=== PATIENT | female | born 1990 | race Caucasian/White ===

== ENCOUNTER → 2017-11-18 | Outpatient (CLI) | payer OTHER ==
[~2017-11-18] MED LIST: ABAC300; ALBIPROI INH; ALBU90I INH; ALBU90OI; ALBU90OI INH; ALBU90OI6 INH; AMOCLA875 PO; AMOX500; AMOX500 PO; AZIT250 PO; AZIT500 PO; Amoxicillin500 MG PO; BUPR150T2; CEPH500 PO; CIME300 PO; CLAR250 PO; CODGUAEL; CYCL10 PO; DIAZ5 PO; DIVA125EC PO; DOXY100 PO; ESCI10 PO; HYDACE5 PO; HYDACE7.5 PO; HYDGUAL120 PO; HYDPAM50 PO; IBUP600 PO; IBUP800 PO; IUD; METR500 PO; NAPR500 PO; NAPR500ERA PO; NAPR550 PO; OXYACE5T PO; PENVK500 PO; PERM5TC TOP; PRED20 PO; PRENATAL 19 TA1 EACH PO; PROACE50 PO; PROC10 PO; PROM25 PO; Peridex480 ML SS; RANI150 PO; RXCLIN PO; RXHYDACE PO; RXONDA4ODT MM; SULTRIDS PO; TRAM50 PO; Verotin-Gr Cap1 EACH PO; Zofran Odt4 MG SL; Zofran Odt8 MG SL
[2017-11-18 17:21] LABS: U Amphetamine Screen Not Detected; U Barbituate Screen Not Detected; U Benzodiazapine Screen Not Detected; U Buprenorphine Screen Not Detected; U Cannabinoids Screen DETECTED; U Cocaine Screen Not Detected; U Methadone Screen Not Detected; U Methamphetamine Screen Not Detected; U Opiates Screen Not Detected; U Oxycodone Screen Not Detected; U Phencyclidine Screen Not Detected; U Propoxyphene Screen Not Detected
== END ==
LOC: LAB SHORT 16:19
PROVIDERS: Obstetrics & Gynecology
DX: Z34.81 Encounter for supervision of other normal pregnancy, first trimester (principal); R30.0 Dysuria

== ENCOUNTER → 2018-01-30 | Outpatient (CLI) | payer OTHER ==
[2018-01-30 18:47] LABS: U Amphetamine Screen Not Detected; U Barbituate Screen Not Detected; U Benzodiazapine Screen Not Detected; U Buprenorphine Screen Not Detected; U Cannabinoids Screen DETECTED; U Cocaine Screen Not Detected; U Methadone Screen Not Detected; U Methamphetamine Screen Not Detected; U Opiates Screen Not Detected; U Oxycodone Screen Not Detected; U Phencyclidine Screen Not Detected; U Propoxyphene Screen Not Detected
== END | disposition home or self-care (01) ==
LOC: LAB 16:23 → LAB SHORT 16:23
PROVIDERS: Obstetrics & Gynecology
DX: O99.89 Other specified diseases and conditions complicating pregnancy, childbirth and the puerperium (principal); R30.0 Dysuria; Z3A.25 25 weeks gestation of pregnancy
CPT/HCPCS: 87086; G0480

== ENCOUNTER → 2018-04-03 | Outpatient (CLI) | payer OTHER ==
[2018-04-03 17:51] LABS: U Amphetamine Screen Not Detected; U Barbituate Screen Not Detected; U Benzodiazapine Screen Not Detected; U Buprenorphine Screen Not Detected; U Cannabinoids Screen Not Detected; U Cocaine Screen Not Detected; U Methadone Screen Not Detected; U Methamphetamine Screen DETECTED; U Opiates Screen Not Detected; U Oxycodone Screen Not Detected; U Phencyclidine Screen Not Detected; U Propoxyphene Screen Not Detected
== END | disposition home or self-care (01) ==
LOC: LAB SHORT 16:55
PROVIDERS: Obstetrics & Gynecology
DX: Z34.83 Encounter for supervision of other normal pregnancy, third trimester (principal); R30.0 Dysuria; Z3A.34 34 weeks gestation of pregnancy

== ENCOUNTER → 2018-04-22 | Outpatient (CLI) | payer OTHER ==
[~2018-04-22] MED LIST changes: +Percocet 5-3251 EACH PO
[2018-04-22 17:44] LABS: U Amphetamine Screen Not Detected; U Barbituate Screen Not Detected; U Benzodiazapine Screen Not Detected; U Buprenorphine Screen Not Detected; U Cannabinoids Screen Not Detected; U Cocaine Screen Not Detected; U Methadone Screen Not Detected; U Methamphetamine Screen Not Detected; U Opiates Screen Not Detected; U Oxycodone Screen Not Detected; U Phencyclidine Screen Not Detected; U Propoxyphene Screen Not Detected
== END | disposition home or self-care (01) ==
LOC: LAB SHORT 15:54 → LAB 15:54
PROVIDERS: Obstetrics & Gynecology
DX: Z34.83 Encounter for supervision of other normal pregnancy, third trimester (principal); Z3A.36 36 weeks gestation of pregnancy
CPT/HCPCS: 87086

== ENCOUNTER 2018-08-24 16:06 | Emergency (ER) | payer OTHER ==
[~2018-08-24] VITALS: Ht 160 cm; Wt 112.9 kg
[2018-08-24 16:59] LABS: BASOPHILS ABSOLUTE AUTO 0.05 K/mm3 (0.00-0.23); BASOPHILS PERCENT AUTO 0 % (0-2); EOSINOPHILS ABSOLUTE AUTO 0.04 K/mm3 (0.00-0.68); EOSINOPHILS PERCENT AUTO 0 % (0-6); Hematocrit 40.9 % (33.0-51.0); Hemoglobin 12.9 g/dL (11.5-16.0); IMMATURE GRAN ABSOLUTE AUTO 0.08 K/mm3 (0.00-0.10); IMMATURE GRAN PERCENT AUTO 1 % (0-1); LYMPHOCYTES ABSOLUTE AUTO 0.52 K/mm3 (0.84-5.20); LYMPHOCYTES PERCENT AUTO 3 % (21-46); MONOCYTES ABSOLUTE AUTO 0.49 K/mm3 (0.16-1.47); MONOCYTES PERCENT AUTO 3 % (4-13); Mean Corpuscular HGB 26.2 pg (26.0-34.0); Mean Corpuscular HGB Conc 31.5 g/dL (31.5-36.5); Mean Corpuscular Volume 83 fL (80-100); Mean Platelet Volume 11.3 fL (9.1-12.4); NEUTROPHILS ABSOLUTE AUTO 16.44 K/mm3 (1.96-9.15); NEUTROPHILS PERCENT AUTO 93 % (41-73); Platelet Count 298 K/mm3 (150-400); RDW Coefficient Variation 14.1 % (11.7-14.2); RDW Standard Deviation 42.9 fL (35.1-46.3); Red Blood Cell Count 4.92 M/mm3 (3.80-5.20); White Blood Cell Count 17.62 K/mm3 (4.00-11.30)
[2018-08-24 17:07] LABS: Alanine Aminotransfer (ALT/SGP 37 U/L (12-78); Albumin, Blood 3.2 g/dL (3.4-5.0); Albumin/Globulin Ratio 0.8 (0.8-1.8); Alk Phos 144 U/L (50-136); Anion Gap 10 mmol/L (6-16); Aspartate Aminotrans (AST/SGOT 72 U/L (12-37); Bilirubin, Total 0.9 mg/dL (0.1-1.0); Blood Urea Nitrogen 12 mg/dL (8-24); Bun/Creatinine Ratio 13.3 (12.0-20.0); CO2, Blood 21 mmol/L (21-32); Calcium, Blood 8.5 mg/dL (8.5-10.1); Chloride, Blood 105 mmol/L (98-108); Globulin, Blood 4.2 g/dL (2.2-4.0); Glomerular Filtration Rate >60 (60-); Glucose, Blood 97 mg/dL (70-99); Potassium, Blood 3.1 mmol/L (3.5-5.5); Sodium, Blood 136 mmol/L (136-145); Total Protein, Blood 7.4 g/dL (6.4-8.2)
[2018-08-24 17:34] LABS: Source, Urine Clean Catch
[2018-08-24 17:40] LABS: Appearance, Urine Clear (Clear); Bilirubin, Urine Neg (Neg); Blood, Urine 3+ (Neg); Color, Urine Yellow (P-Yellow); Glucose Qualitative, Urine Neg (Neg); Ketones, Urine Neg (Neg); Leukocyte Esterase, Urine 3+ (Neg); Nitrite, Urine Neg (Neg); Protein, Urine 1+ (Neg); Specific Gravity, Urine 1.015 (1.003-1.022); Urobilinogen, Urine NORM (Normal)
[2018-08-24 17:58] LABS: Bacteria Rare /hpf; Red Blood Cells, Urine 0-2 /hpf (0-2); Squamous Epithelial Cells Rare /hpf (Few)
== END 2018-08-24 17:57 | disposition left against medical advice (07) ==
LOC: ER 16:06
PROVIDERS: Physician Assistant
DX: R42 Dizziness and giddiness (principal); R11.0 Nausea; M54.5 Low back pain; Z53.20 Procedure and treatment not carried out because of patient's decision for unspecified reasons
CPT/HCPCS: 36415; 80053; 81001; 81025; 85025; 87077; 87086; 87186; 93005; 93010; 99283-25

== ENCOUNTER 2018-08-25 20:21 | Inpatient (IN) | payer OTHER ==
[~2018-08-25] VITALS: Ht 160 cm; Wt 118.7 kg
[2018-08-25 21:12] LABS: Hematocrit 39.9 % (33.0-51.0); Mean Corpuscular HGB 26.5 pg (26.0-34.0); Mean Corpuscular HGB Conc 32.6 g/dL (31.5-36.5); Mean Corpuscular Volume 81 fL (80-100); Mean Platelet Volume 11.4 fL (9.1-12.4); Platelet Count 249 K/mm3 (150-400); RDW Standard Deviation 41.5 fL (35.1-46.3); White Blood Cell Count 24.71 K/mm3 (4.00-11.30)
[2018-08-25 21:30] LABS: Albumin, Blood 2.8 g/dL (3.4-5.0); Albumin/Globulin Ratio 0.6 (0.8-1.8); Bun/Creatinine Ratio 13.6 (12.0-20.0); Calcium, Blood 8.5 mg/dL (8.5-10.1); Creatinine, Blood 1.32 mg/dL (0.40-1.00); Globulin, Blood 4.5 g/dL (2.2-4.0); Potassium, Blood 3.2 mmol/L (3.5-5.5); Total Protein, Blood 7.3 g/dL (6.4-8.2)
[2018-08-25 21:37] LABS: BAND PERCENT MAN 5 % (0-8); BASOPHILS PERCENT MAN 0 % (0-2); EOSINOPHILS ABSOLUTE MAN 0.24 K/mm3 (0.00-0.68); EOSINOPHILS PERCENT MAN 1 % (0-6); LYMPHOCYTES ABSOLUTE MAN 2.22 K/mm3 (0.84-5.20); LYMPHOCYTES PERCENT MAN 9 % (21-46); METAMYELOCYTE ABSOLUTE MAN 0.49 K/mm3 (0.00-0.00); METAMYELOCYTE PERCENT MAN 2 % (0-0); MONOCYTES ABSOLUTE MAN 1.97 K/mm3 (0.16-1.47); MONOCYTES PERCENT MAN 8 % (4-13); NEUTROPHILS ABSOLUTE MAN 19.76 K/mm3 (1.96-9.15); SEG NEUTROPHILS PERCENT MAN 75 % (41-73); TOTAL CELLS COUNTED 100
[2018-08-26 00:05] LABS: Source, Urine Clean Catch
[2018-08-26 00:09] LABS: Appearance, Urine Cloudy (Clear); Blood, Urine 4+ (Neg); Color, Urine Amber (P-Yellow); Glucose Qualitative, Urine Neg (Neg); Ketones, Urine 1+ (Neg); Leukocyte Esterase, Urine 3+ (Neg); Nitrite, Urine Pos (Neg); Protein, Urine 3+ (Neg); Specific Gravity, Urine 1.015 (1.003-1.022); Urobilinogen, Urine 4+ (Normal)
[2018-08-26 00:10] LABS: Bilirubin, Urine 1+ (Neg)
[2018-08-26 00:18] LABS: Bacteria Many /hpf; Squamous Epithelial Cells Many /hpf (Few); White Blood Cells, Urine TNTC /hpf (0-5)
[2018-08-26 00:19] LABS: Hyaline Casts 0-2 /lpf (0-2)
[2018-08-26 05:11] LABS: Hematocrit 36.8 % (33.0-51.0); Hemoglobin 11.7 g/dL (11.5-16.0); Mean Corpuscular HGB 26.1 pg (26.0-34.0); Mean Corpuscular HGB Conc 31.8 g/dL (31.5-36.5); Mean Corpuscular Volume 82 fL (80-100); Platelet Count 195 K/mm3 (150-400); RDW Coefficient Variation 14.3 % (11.7-14.2); RDW Standard Deviation 42.3 fL (35.1-46.3); Red Blood Cell Count 4.48 M/mm3 (3.80-5.20); White Blood Cell Count 21.94 K/mm3 (4.00-11.30)
[2018-08-26 05:44] LABS: Albumin, Blood 2.4 g/dL (3.4-5.0); Albumin/Globulin Ratio 0.6 (0.8-1.8); Bilirubin, Total 1.2 mg/dL (0.1-1.0); Bun/Creatinine Ratio 13.7 (12.0-20.0); Calcium, Blood 7.6 mg/dL (8.5-10.1); Creatinine, Blood 1.24 mg/dL (0.40-1.00); Potassium, Blood 3.3 mmol/L (3.5-5.5); Total Protein, Blood 6.4 g/dL (6.4-8.2)
--- NOTE | 2018-08-26 06:12 | NUR ---
PT NEW ADMIT THIS SHIFT FOR SEPSIS/UTI. PT HR TACHY UP TO 130'S. PT DENIED CP/PRESSURE/SOB. MAX TEMP 100.3. PT C/O NAUSEA THIS AM, NO EMESIS. PAIN MGD PER EMAR. PT VOIDING FOUL SMELLING URINE, DENIES PAIN W/VOID. PT NPO PER ORDERS, IVF CONT, K+RIDER GIVEN. PT CONT TO C/O DIZZINESS WHEN UP, SBA OOB FOR SAFETY. PT USING CALL LIGHT FOR ASSISTANCE, WILL CONT TO MONITOR UNTIL REP GIVEN TO ONCOMING RN.
--- NOTE | 2018-08-26 07:21 | NUR ---
pt laying in bed sleepy but awake req something to eat and drink stated she feels like she can keep things down will check diet order
[2018-08-26 09:02] LABS: U Amphetamine Screen DETECTED; U Barbituate Screen Not Detected; U Benzodiazapine Screen Not Detected; U Buprenorphine Screen Not Detected; U Cannabinoids Screen Not Detected; U Cocaine Screen Not Detected; U Methadone Screen Not Detected; U Methamphetamine Screen DETECTED; U Opiates Screen DETECTED; U Oxycodone Screen Not Detected; U Phencyclidine Screen Not Detected; U Propoxyphene Screen Not Detected
--- NOTE | 2018-08-26 10:20 | NUR ---
DR JAMES BY TO SEE PT TEMP 102.4 PO TYLENOL GIVEN ALEVE GIVEN EARLIER OK TO ADV DIET TO REG
--- NOTE | 2018-08-26 12:03 | NUR ---
DR JAMES NOTIFIED RE BC RESULTS GRAM NEG BACILLI X2 PT CURRENTLY ON ROCEPHIN NO CHANGES TO ORDERS
--- NOTE | 2018-08-26 14:24 | NUR ---
TEMP SPOT CHECK 98.4 PT FAIZA REG DIET NO NAUSEA
--- NOTE | 2018-08-26 16:11 | NUR ---
pt febrile po tylenol given per sn pt having chills
--- NOTE | 2018-08-26 17:37 | NUR ---
PT HAD LG LOOSE STOOL IN BED ASSISTED TO BATHROOM CLEANED UP ATTENDS PLACED ASKED PT IF SHE HAS BEEN HAVING DIARRHEA STATED NO
--- NOTE | 2018-08-26 18:08 | NUR ---
PT DONE EATING DINNER REG DIET NO NAUSEA WILL CONT TO MONITOR DIARRHEA
--- NOTE | 2018-08-27 04:55 | NUR ---
PT CONT TO RUN LOW GRADE TEMP T/O NIGHT, HR TACHY UP TO 120'S, PT DENIES CP/PRESSURE. URINE DARK/CLOUDY W/FOUL ODOR PRESENT, PT VOIDING W/O DIFFICULTY. PT REP PAIN IN ABD AND R FLANK, PAIN MGD PER EMAR W/REP RELIEF. PT FAIZA REG PO, DOES C/O OCC NAUSEA R/T PAIN. PT UP IN ROOM W/SBA, OUTSIDE TO SMOKE X1 THIS SHIFT. IVF AND ABX CONT PER ORDERS. PT USING CALL LIGHT FOR ASSISTANCE, WILL CONT TO MONITOR UNTIL REP GIVEN TO ONCOMING RN.
[2018-08-27 05:03] LABS: BASOPHILS ABSOLUTE AUTO 0.02 K/mm3 (0.00-0.23); BASOPHILS PERCENT AUTO 0 % (0-2); Hematocrit 32.3 % (33.0-51.0); Hemoglobin 10.3 g/dL (11.5-16.0); LYMPHOCYTES ABSOLUTE AUTO 0.49 K/mm3 (0.84-5.20); LYMPHOCYTES PERCENT AUTO 6 % (21-46); MONOCYTES ABSOLUTE AUTO 0.57 K/mm3 (0.16-1.47); MONOCYTES PERCENT AUTO 7 % (4-13); Mean Corpuscular HGB 26.1 pg (26.0-34.0); Mean Corpuscular HGB Conc 31.9 g/dL (31.5-36.5); Mean Corpuscular Volume 82 fL (80-100); Mean Platelet Volume 12.5 fL (9.1-12.4); Platelet Count 156 K/mm3 (150-400); RDW Coefficient Variation 14.4 % (11.7-14.2); RDW Standard Deviation 42.8 fL (35.1-46.3); Red Blood Cell Count 3.95 M/mm3 (3.80-5.20); White Blood Cell Count 8.79 K/mm3 (4.00-11.30)
[2018-08-27 05:14] LABS: EOSINOPHILS ABSOLUTE AUTO 0.07 K/mm3 (0.00-0.68); EOSINOPHILS PERCENT AUTO 1 % (0-6); IMMATURE GRAN ABSOLUTE AUTO 0.08 K/mm3 (0.00-0.10); IMMATURE GRAN PERCENT AUTO 1 % (0-1); NEUTROPHILS ABSOLUTE AUTO 7.56 K/mm3 (1.96-9.15); NEUTROPHILS PERCENT AUTO 86 % (41-73)
[2018-08-27 05:23] LABS: Bun/Creatinine Ratio 12.9 (12.0-20.0); Calcium, Blood 7.5 mg/dL (8.5-10.1); Creatinine, Blood 1.24 mg/dL (0.40-1.00); Potassium, Blood 3.3 mmol/L (3.5-5.5)
--- NOTE | 2018-08-27 17:38 | NUR ---
SHIFT SUMMARY PT HAS DONE WELL THIS SHIFT. AFEBRILE. STILL C/O R FLANK PAIN-MEDICATED WITH SCHEDUALED NAPROXYN AND 50MCG FENTANYL ONCE. DENIES N/V. IV ABX AND FLUIDS PER EMAR. INDEPENDET IN ROOM.
--- NOTE | 2018-08-27 18:54 | NUR ---
PT REPORTED EMESIS, 500CC EMESIS OUTPUT VISUALIZED. PT REPORTS N/V ASSOCIATED WITH PAIN. REPORT OF MIGRAINE LIKE HEADACHE WITH R FLANK AND ABD PAIN. ICE PACK TO NECK, COOL CLOTH TO FOREHEAD. MINIMAL RELIEF NOTED. IV ZOFRAN AND FENTANYL ADMINISTERED. PT REPORTS NAUSEA AND PAIN ARE NOW AT A TOLERABLE LEVEL. SHE IS RESTING IN BED WITH EYES CLOSED. NO S/SX OF DISTRESS NOTED AT THIS TIME.
--- NOTE | 2018-08-28 06:36 | NUR ---
SUMMARY: NO ACUTE CHANGE TONIGHT. VSS, A/O, PT IS INDEPENDENT IN ROOM. PT GIVEN PAIN AND NAUSEA MEDS X2. PT REPORTS THE INCREASED PAIN AT R FLANK MAKES HER FEEL NAUSEATED ASWELL. ANTIBIOTIC INFUSED. NO SAFETY CONCERNS AT THIS TIME.
[2018-08-28] MEDS ORDERED: Naproxen250 MG PO (11:45)
[2018-08-28] MEDS ORDERED: SACC250C PO (11:45)
[2018-08-28] MEDS ORDERED: LEVO750 PO (11:46)
== END 2018-08-28 12:21 | disposition home or self-care (01) | DRG 872 ==
LOC: ER 20:21 → SURS 08-26 00:29 → ER 08-26 02:06 → EDBEDREQ 08-26 02:06 → SURS 08-26 02:11
PROVIDERS: Hospitalist; Physician Assistant; ADMIT Internal Medicine
DX: A41.51 Sepsis due to Escherichia coli [E. coli] (principal); N12 Tubulo-interstitial nephritis, not specified as acute or chronic; N17.9 Acute kidney failure, unspecified; R65.20 Severe sepsis without septic shock; E86.0 Dehydration; E87.6 Hypokalemia; F19.10 Other psychoactive substance abuse, uncomplicated; J45.909 Unspecified asthma, uncomplicated; F17.210 Nicotine dependence, cigarettes, uncomplicated
CPT/HCPCS: 36415; 71045; 80048; 80053; 81001; 83605; 83690; 84703; 85025; 85027; 87040; 87077; 87086; 87186; 96361; 96365; 96375; 96376; 99284-25; J0696; J1170; J1650; J2405; J3010; J3480; J7030; J7120; P9612

== ENCOUNTER → 2024-08-17 | Outpatient (CLI) | payer OTHER ==
[~2024-08-17] MED LIST changes: +LEVO750 PO; +Naproxen250 MG PO; +SACC250C PO
== END | disposition home or self-care (01) ==
LOC: LAB 18:50 → LAB SHORT 18:50
DX: J02.9 Acute pharyngitis, unspecified (principal)
CPT/HCPCS: 87081; 87147